=== PATIENT | male | born 1935 | race Caucasian/White ===

== ENCOUNTER 2021-01-08 17:47 | Inpatient (IN) | payer MEDICARE, OTHER ==
[~2021-01-08 17:47] MED LIST: 3IN1 COMMODE XX; ASPIRIN CHEWABL81 MG PO; ATORVASTATIN CA80 MG PO; CARVEDILOL3.125 MG PO; CEFDINIR300 MG PO; DULERA 200 MCG8.8 GM INH; DUONEB 2.5-0.5M1 AMP NEB; ELIQUIS2.5 MG PO; FEOSOL325 MG PO; FLOVENT HF120 PUFFS/ INH; HCTZ12.5 MG PO; LASIX40 MG PO; MEDROL 4MG DOSEP4 MG PO; MICON-GUARD 2% TOP; MONTELUKAST SOD10 MG PO; MUCINEX 600MG600 MG PO; OMEPRAZOLE40 MG PO; PERCOCET 5-3251 EACH PO; PREDNISONE 20MG20 MG PO; PREDNISONE5 MG PO; PULMICORT0.5 MG/2 M NEB; SELENIUM200 MC1 PO; VENTOLIN (2.5 MG/3 M INH; VITAMIN D3 COM1 EACH PO; ZITHROMAX500 MG PO; ZPAK PO; [UNRECOGNIZED DRUG - OTHER] SL
[2021-01-08 18:17] LABS: BASOPHIL 0.4 % (0-2); EOSINOPHIL 0.8 % (0-7); HCT 39.9 % (42.0-52.0); LYMPHOCYTE 15.6 % (15-48); MCH 23.6 pg (25.0-31.0); MCHC 30.1 g/dL (32.0-36.0); MCV 78.5 fL (78.0-100.0); MONOCYTE 10.2 % (0-12); MPV 11.1 fL (6.0-9.5); NEUTROPHIL 72.6 % (41-80); NRBC 0; PLT 267 K/uL (150-400); RBC 5.08 M/uL (4.70-6.00); RDW 19.7 % (11.5-14.0); WBC 9.6 K/uL (4.0-10.5)
[2021-01-08 18:23] LABS: INR 1.1 (0.9-1.2); PROTHROMBIN TIME 13.5 SECONDS (11.4-13.6); PTT 29.4 SECONDS (22.2-34.7)
[2021-01-08 18:34] LABS: LACTIC ACID 1.8 mmol/L (0.4-1.9)
[2021-01-08 18:39] LABS: CKMB 1.2 ng/mL (0.0-3.6); PRO-BNP 276 pg/mL (<450)
[2021-01-08 18:41] LABS: ALBUMIN 3.4 g/dL (3.4-5.0); BILIRUBIN - TOTAL 0.3 mg/dL (0.2-1.0); BUN/CREAT RATIO (CALC) 33.3 RATIO; CREATININE 1.05 mg/dL (0.67-1.17); GLOBULIN (CALCULATION) 3.8 g/dL; TOTAL PROTEIN 7.2 g/dL (6.4-8.2)
[2021-01-08 20:51] LABS: MAGNESIUM 2.1 mg/dL (1.8-2.4); PHOSPHORUS 3.5 mg/dL (2.6-4.7)
[2021-01-09 05:55] LABS: BASOPHIL 0.1 % (0-2); EOSINOPHIL 0 % (0-7); HCT 36.3 % (42.0-52.0); HGB 10.9 g/dl (13.2-18.0); LYMPHOCYTE 8.2 % (15-48); MCV 76.6 fL (78.0-100.0); MONOCYTE 3.7 % (0-12); MPV 11.6 fL (6.0-9.5); NEUTROPHIL 87.6 % (41-80); NRBC 0; PLT 267 K/uL (150-400); RBC 4.74 M/uL (4.70-6.00); RDW 19.3 % (11.5-14.0); WBC 8.1 K/uL (4.0-10.5)
[2021-01-09 06:24] LABS: BILIRUBIN - TOTAL 0.4 mg/dL (0.2-1.0); BUN/CREAT RATIO (CALC) 37.9 RATIO; CREATININE 0.95 mg/dL (0.67-1.17); GLOBULIN (CALCULATION) 3.6 g/dL; POTASSIUM 4.5 mmol/L (3.5-5.1); TOTAL PROTEIN 6.6 g/dL (6.4-8.2)
--- NOTE | 2021-01-09 10:03 | NUR ---
PATIENT 92% ON ROOM AIR LYING IN BED. AFTER PATIENT TRANSFERRED TO CHAIR AND SPOT CHECKED PATIENT SAT WAS 86% PLACED ON O2-2L PER NC. PRN DUONEB GIVEN INSTRUCTED BY . LOUISA BELLA ENCOURAGED AND USED
--- NOTE | 2021-01-10 13:35 | NUR ---
01/10/21 Mr. Renee lives at home. He has 24 hours caregivers. He has 02, cane, rw, and s.chair. [facility] is current and patient chose to continue with [facility]. [facility] was notified of admission and anticipated discharge for 01/11/21.
[2021-01-10] MEDS ORDERED: PREDNISONE 20MG20 MG PO (17:30)
[2021-01-10] MEDS ORDERED: LEVAQUIN750 MG PO (17:30)
[2021-01-11 05:58] LABS: BASOPHIL 0.1 % (0-2); EOSINOPHIL 0.2 % (0-7); HCT 32.9 % (42.0-52.0); HGB 10.1 g/dl (13.2-18.0); LYMPHOCYTE 14.6 % (15-48); MCH 23.3 pg (25.0-31.0); MCHC 30.7 g/dL (32.0-36.0); MCV 75.8 fL (78.0-100.0); MONOCYTE 11.4 % (0-12); MPV 11.3 fL (6.0-9.5); NEUTROPHIL 73.2 % (41-80); NRBC 0; PLT 244 K/uL (150-400); RBC 4.34 M/uL (4.70-6.00); WBC 9.6 K/uL (4.0-10.5)
[2021-01-11 06:21] LABS: CREATININE 1.03 mg/dL (0.67-1.17); POTASSIUM 3.9 mmol/L (3.5-5.1)
== END 2021-01-11 09:40 | disposition home health service (06) | DRG 191 ==
LOC: FER 17:47 → FMS 20:03
PROVIDERS: Allergy & Immunology Allergy; Emergency Medicine; Nurse Practitioner; ADMIT Internal Medicine
DX: J44.1 Chronic obstructive pulmonary disease with (acute) exacerbation (principal); J96.11 Chronic respiratory failure with hypoxia; Z66 Do not resuscitate; I10 Essential (primary) hypertension; F03.90 Unspecified dementia, unspecified severity, without behavioral disturbance, psychotic disturbance, mood disturbance, and anxiety; F17.210 Nicotine dependence, cigarettes, uncomplicated; G47.30 Sleep apnea, unspecified; Z20.822 Contact with and (suspected) exposure to COVID-19; L89.151 Pressure ulcer of sacral region, stage 1; E78.5 Hyperlipidemia, unspecified; I25.10 Atherosclerotic heart disease of native coronary artery without angina pectoris; Z85.118 Personal history of other malignant neoplasm of bronchus and lung; Z79.01 Long term (current) use of anticoagulants; Z79.899 Other long term (current) drug therapy; Z99.81 Dependence on supplemental oxygen; Z95.5 Presence of coronary angioplasty implant and graft; Z85.828 Personal history of other malignant neoplasm of skin; Z86.711 Personal history of pulmonary embolism; Z90.2 Acquired absence of lung [part of]
CPT/HCPCS: 36415; 36600; 71045; 80048; 80053; 82553; 82803; 83605; 83735; 83880; 84100; 84484; 85025; 85610; 85730; 93005; 94010; 94640; 94667; 94668; 97162; 97530-GP; J1956; J2930; J7512; U0002

== ENCOUNTER 2021-03-19 13:23 | Day surgery (SDCO) | payer MEDICARE, OTHER ==
[~2021-03-19 13:23] MED LIST changes: +LEVAQUIN750 MG PO
[2021-03-19 14:14] LABS: BASOPHIL 0.5 % (0-2); EOSINOPHIL 4.5 % (0-7); HCT 35.9 % (42.0-52.0); HGB 10.4 g/dl (13.2-18.0); LYMPHOCYTE 10.5 % (15-48); MCH 23.1 pg (25.0-31.0); MCV 79.8 fL (78.0-100.0); MONOCYTE 8.3 % (0-12); NEUTROPHIL 75.9 % (41-80); NRBC 0; PLT 225 K/uL (150-400); RDW 19.8 % (11.5-14.0); WBC 7.9 K/uL (4.0-10.5)
[2021-03-19 14:26] LABS: ALBUMIN 3.1 g/dL (3.4-5.0); BILIRUBIN - TOTAL 0.4 mg/dL (0.2-1.0); GLOBULIN (CALCULATION) 3.3 g/dL; POTASSIUM 4.4 mmol/L (3.5-5.1); TOTAL PROTEIN 6.4 g/dL (6.4-8.2)
[2021-03-19 14:31] LABS: PRO-BNP 462 pg/mL (<450)
[2021-03-19] MEDS ORDERED: ZYRTEC10 M3 PO (17:56)
[2021-03-20 05:39] LABS: BASOPHIL 0.2 % (0-2); EOSINOPHIL 0 % (0-7); HCT 32.9 % (42.0-52.0); HGB 9.8 g/dl (13.2-18.0); LYMPHOCYTE 8.3 % (15-48); MCH 23.2 pg (25.0-31.0); MCHC 29.8 g/dL (32.0-36.0); MPV 11.5 fL (6.0-9.5); NEUTROPHIL 90.2 % (41-80); NRBC 0; PLT 210 K/uL (150-400); RDW 19.6 % (11.5-14.0); RETICULOCYTE COUNT 1.7 % (1.0-2.0); WBC 6.1 K/uL (4.0-10.5)
[2021-03-20 05:41] LABS: RBC 4.22 M/uL (4.70-6.00)
[2021-03-20 06:39] LABS: IRON % SATURATION 5.7 %SAT (20-50)
[2021-03-20 07:07] LABS: ALBUMIN 2.8 g/dL (3.4-5.0); BILIRUBIN - TOTAL 0.4 mg/dL (0.2-1.0); BUN/CREAT RATIO (CALC) 29.3 RATIO; CREATININE 0.99 mg/dL (0.67-1.17); FOLIC ACID (SERUM) 11.2 ng/mL (8.6-58.9); GLOBULIN (CALCULATION) 3.7 g/dL; MAGNESIUM 1.7 mg/dL (1.8-2.4); POTASSIUM 4.3 mmol/L (3.5-5.1); TOTAL PROTEIN 6.5 g/dL (6.4-8.2)
[2021-03-21 06:23] LABS: BASOPHIL 0.1 % (0-2); EOSINOPHIL 0 % (0-7); HGB 9.6 g/dl (13.2-18.0); LYMPHOCYTE 3.6 % (15-48); MCH 23.7 pg (25.0-31.0); MCV 76.5 fL (78.0-100.0); MPV 11.9 fL (6.0-9.5); NEUTROPHIL 92.8 % (41-80); NRBC 0; PLT 217 K/uL (150-400); RBC 4.05 M/uL (4.70-6.00); RDW 19.5 % (11.5-14.0)
[2021-03-21 06:33] LABS: WBC 14.9 K/uL (4.0-10.5)
[2021-03-21 06:37] LABS: POTASSIUM 4.1 mmol/L (3.5-5.1)
[2021-03-21 06:38] LABS: MAGNESIUM 2.1 mg/dL (1.8-2.4)
--- NOTE | 2021-03-21 12:22 | NUR ---
03/21/21 Mr. Renee lives at home with 24 hour caegiving from his famaily. He is followed by [facility] and wishes to continue with the services. Affliation understood. Mr. Renee has a rw, CPAP, 02, cane and s. Chair. [facility] was informed of planned discharge for today.
[2021-03-22 05:42] LABS: BASOPHIL 0.1 % (0-2); EOSINOPHIL 0 % (0-7); HCT 31.2 % (42.0-52.0); HGB 9.7 g/dl (13.2-18.0); LYMPHOCYTE 4.8 % (15-48); MCH 23.6 pg (25.0-31.0); MCHC 31.1 g/dL (32.0-36.0); MCV 75.9 fL (78.0-100.0); MONOCYTE 6.1 % (0-12); NEUTROPHIL 88.3 % (41-80); NRBC 0; PLT 223 K/uL (150-400); RBC 4.11 M/uL (4.70-6.00); RDW 19.7 % (11.5-14.0); WBC 13.5 K/uL (4.0-10.5)
[2021-03-22 05:44] LABS: MPV 11.1 fL (6.0-9.5)
[2021-03-22 05:48] LABS: ALBUMIN 2.9 g/dL (3.4-5.0); BILIRUBIN - TOTAL 0.3 mg/dL (0.2-1.0); BUN/CREAT RATIO (CALC) 41.2 RATIO; CREATININE 0.97 mg/dL (0.67-1.17); GLOBULIN (CALCULATION) 3.1 g/dL; MAGNESIUM 2.2 mg/dL (1.8-2.4); POTASSIUM 4.5 mmol/L (3.5-5.1)
[2021-03-22] MEDS ORDERED: CARVEDILOL3.125 MG PO (13:07)
[2021-03-22] MEDS ORDERED: ELIQUIS2.5 MG PO (13:07)
== END 2021-03-22 17:15 | disposition home health service (06) ==
LOC: FER 13:23 → FMS 15:26
PROVIDERS: Emergency Medicine; ADMIT Internal Medicine
DX: J96.22 Acute and chronic respiratory failure with hypercapnia (principal); J44.1 Chronic obstructive pulmonary disease with (acute) exacerbation; I25.10 Atherosclerotic heart disease of native coronary artery without angina pectoris; I10 Essential (primary) hypertension; E78.5 Hyperlipidemia, unspecified; G47.33 Obstructive sleep apnea (adult) (pediatric); I71.9 Aortic aneurysm of unspecified site, without rupture; E87.2 Acidosis; D50.9 Iron deficiency anemia, unspecified; F03.90 Unspecified dementia, unspecified severity, without behavioral disturbance, psychotic disturbance, mood disturbance, and anxiety; Z95.5 Presence of coronary angioplasty implant and graft; Z99.81 Dependence on supplemental oxygen; Z72.0 Tobacco use; Z20.822 Contact with and (suspected) exposure to COVID-19; Z79.899 Other long term (current) drug therapy
CPT/HCPCS: 36415; 36600; 71045; 71250; 80048; 80053; 82607; 82746; 82803; 83540; 83550; 83605; 83735; 83880; 84100; 84145; 84484; 85025; 93005; 94010; 94640; 94668; G0378; J0456; J0696; J2916; J2930; J3475; J7050; U0002

== ENCOUNTER 2021-03-23 08:57 | Emergency (ER) | payer MEDICARE, OTHER ==
[~2021-03-23 08:57] MED LIST changes: +ZYRTEC10 M3 PO
== END 2021-03-23 10:38 | disposition home or self-care (01) ==
LOC: FER 08:57
DX: S51.012A Laceration without foreign body of left elbow, initial encounter (principal); J44.9 Chronic obstructive pulmonary disease, unspecified; Z86.79 Personal history of other diseases of the circulatory system; W19.XXXA Unspecified fall, initial encounter; Y92.009 Unspecified place in unspecified non-institutional (private) residence as the place of occurrence of the external cause
CPT/HCPCS: 99283

== ENCOUNTER 2021-04-24 14:13 | Day surgery (SDCO) | payer MEDICARE, OTHER ==
[~2021-04-24] VITALS: Ht 175.3 cm; Wt 91.7 kg
[2021-04-24 15:52] LABS: BASOPHIL 0.8 % (0-2); EOSINOPHIL 2.7 % (0-7); HCT 34.9 % (42.0-52.0); HGB 10.3 g/dl (13.2-18.0); LYMPHOCYTE 15.3 % (15-48); MCH 24.2 pg (25.0-31.0); MCHC 29.5 g/dL (32.0-36.0); MCV 82.1 fL (78.0-100.0); MONOCYTE 12.4 % (0-12); MPV 11.5 fL (6.0-9.5); NEUTROPHIL 68.5 % (41-80); NRBC 0; PLT 237 K/uL (150-400); RBC 4.25 M/uL (4.70-6.00); RDW 20.6 % (11.5-14.0); WBC 6.2 K/uL (4.0-10.5)
[2021-04-24 16:23] LABS: ALBUMIN 3.2 g/dL (3.4-5.0); BILIRUBIN - TOTAL 0.5 mg/dL (0.2-1.0); BUN/CREAT RATIO (CALC) 22.4 RATIO; CREATININE 0.98 mg/dL (0.67-1.17); GLOBULIN (CALCULATION) 3.1 g/dL; POTASSIUM 4.1 mmol/L (3.5-5.1); TOTAL PROTEIN 6.3 g/dL (6.4-8.2)
[2021-04-24 16:28] LABS: LACTIC ACID 0.9 mmol/L (0.4-1.9)
[2021-04-24 16:30] LABS: PRO-BNP 349 pg/mL (<450)
[2021-04-24 17:09] LABS: CORONAVIRUS 2019 SARS-COV-2 NEGATIVE (NEGATIVE); INFLUENZA A NAA NEGATIVE (NEGATIVE)
[2021-04-24 22:26] LABS: BILIRUBIN NEGATIVE (NEGATIVE); BLOOD TRACE-INTACT Ery/uL (NEGATIVE); CLARITY CLEAR (CLEAR); COLOR YELLOW (YELLOW); GLUCOSE (U) NORMAL (NORMAL); LEUKOCYTES NEGATIVE Leu/uL (NEGATIVE); NITRITE NEGATIVE (NEGATIVE); PROTEIN NEGATIVE (NEGATIVE); UROBILINOGEN 0.2 mg/dL (0.2-1.0); pH 5.5 (5.0-9.0)
[2021-04-24 22:34] LABS: BACTERIA TRACE; URINARY RBC RARE
[2021-04-25 05:58] LABS: BASOPHIL 0.2 % (0-2); EOSINOPHIL 0 % (0-7); HCT 34.9 % (42.0-52.0); HGB 10.2 g/dl (13.2-18.0); LYMPHOCYTE 8.3 % (15-48); MCH 23.8 pg (25.0-31.0); MCHC 29.2 g/dL (32.0-36.0); MCV 81.4 fL (78.0-100.0); MONOCYTE 1.5 % (0-12); MPV 11.4 fL (6.0-9.5); NEUTROPHIL 89.8 % (41-80); NRBC 0; PLT 218 K/uL (150-400); RBC 4.29 M/uL (4.70-6.00); RDW 20.5 % (11.5-14.0); WBC 5.3 K/uL (4.0-10.5)
[2021-04-25 06:21] LABS: BUN/CREAT RATIO (CALC) 30.3 RATIO; CREATININE 0.89 mg/dL (0.67-1.17); POTASSIUM 4.3 mmol/L (3.5-5.1)
--- NOTE | 2021-04-25 16:01 | NUR ---
04/25/21 Mr. Renee has 24 hour caregivers. He has a CPAP, rw, s. chair, 02, and cane. [facility] is current. Sam Renee, son / POA, wishes for [facility] to continue providing services and is knowledgeable of affliation. A referral was made to [facility] via [facility].
--- NOTE | 2021-04-26 04:22 | NUR ---
@ 1999 lATE ENTRY: TELEMETRY SHOWING NSR VR 73. RI: 0.16, QRS: .08 04/26/21 @ 0400 LATE ENTRY: TELEMETRY SHOWING NSR VR 74. RI: 0.20, QRS: .08
[2021-04-26] MEDS ORDERED: PREDNISONE 20MG20 MG PO (09:52)
--- NOTE | 2021-04-30 09:25 | NUR ---
PATIENT WAS DISCHARGED BEFORE BEING SEEN BY WOUND CARE.
== END 2021-04-26 10:45 | disposition home health service (06) ==
LOC: FER 14:13 → FMS 17:31
PROVIDERS: Nurse Practitioner; Nurse Practitioner Family; ADMIT Internal Medicine
DX: J44.1 Chronic obstructive pulmonary disease with (acute) exacerbation (principal); J96.22 Acute and chronic respiratory failure with hypercapnia; J96.21 Acute and chronic respiratory failure with hypoxia; F03.90 Unspecified dementia, unspecified severity, without behavioral disturbance, psychotic disturbance, mood disturbance, and anxiety; I44.0 Atrioventricular block, first degree; Z20.822 Contact with and (suspected) exposure to COVID-19; Z90.2 Acquired absence of lung [part of]; G47.33 Obstructive sleep apnea (adult) (pediatric); I10 Essential (primary) hypertension; I25.10 Atherosclerotic heart disease of native coronary artery without angina pectoris; Z95.5 Presence of coronary angioplasty implant and graft; M25.511 Pain in right shoulder; G89.29 Other chronic pain; Z87.891 Personal history of nicotine dependence; Z79.01 Long term (current) use of anticoagulants; G93.41 Metabolic encephalopathy; Z86.711 Personal history of pulmonary embolism; L89.329 Pressure ulcer of left buttock, unspecified stage; Z66 Do not resuscitate; Z85.118 Personal history of other malignant neoplasm of bronchus and lung; Z51.5 Encounter for palliative care
CPT/HCPCS: 36415; 36600; 71046; 80048; 80053; 81001; 82803; 83605; 83880; 84484; 85025; 87040; 93005; 94010; 94640; 94664; 94667; 94668; 94762; G0378; J2930; J7030; U0002

== ENCOUNTER 2021-05-07 17:17 | Day surgery (SDCO) | payer MEDICARE, OTHER ==
[~2021-05-07] VITALS: Ht 175.3 cm; Wt 89.0 kg
[2021-05-07 17:58] LABS: BASOPHIL 0.2 % (0-2); EOSINOPHIL 1.2 % (0-7); HCT 35.9 % (42.0-52.0); HGB 10.6 g/dl (13.2-18.0); LYMPHOCYTE 8.9 % (15-48); MCH 23.8 pg (25.0-31.0); MCHC 29.5 g/dL (32.0-36.0); MCV 80.5 fL (78.0-100.0); MONOCYTE 9.9 % (0-12); MPV 11.8 fL (6.0-9.5); NEUTROPHIL 79.3 % (41-80); NRBC 0; PLT 213 K/uL (150-400); RBC 4.46 M/uL (4.70-6.00); WBC 10.7 K/uL (4.0-10.5)
[2021-05-07 18:01] LABS: INR 1.17 (0.9-1.2); PROTHROMBIN TIME 14.3 SECONDS (11.8-13.4); PTT 33.9 SECONDS (24.4-34.7)
[2021-05-07 18:10] LABS: ALBUMIN 2.9 g/dL (3.4-5.0); BILIRUBIN - TOTAL 0.5 mg/dL (0.2-1.0); BUN/CREAT RATIO (CALC) 27.4 RATIO; C-REACTIVE PROTEIN 1.1 mg/dL (<=0.90); CREATININE 0.84 mg/dL (0.67-1.17); GLOBULIN (CALCULATION) 3.6 g/dL; MAGNESIUM 1.7 mg/dL (1.8-2.4); POTASSIUM 4.1 mmol/L (3.5-5.1); TOTAL PROTEIN 6.5 g/dL (6.4-8.2)
[2021-05-07 21:24] LABS: BILIRUBIN NEGATIVE (NEGATIVE); BLOOD NEGATIVE Ery/uL (NEGATIVE); CLARITY CLEAR (CLEAR); COLOR YELLOW (YELLOW); GLUCOSE (U) TRACE mg/dL (NORMAL); LEUKOCYTES NEGATIVE Leu/uL (NEGATIVE); NITRITE NEGATIVE (NEGATIVE); PROTEIN NEGATIVE (NEGATIVE); UROBILINOGEN 0.2 mg/dL (0.2-1.0)
[2021-05-08 05:54] LABS: BASOPHIL 0.3 % (0-2); EOSINOPHIL 0 % (0-7); HCT 34.4 % (42.0-52.0); HGB 10.2 g/dl (13.2-18.0); LYMPHOCYTE 7.4 % (15-48); MCH 23.8 pg (25.0-31.0); MCHC 29.7 g/dL (32.0-36.0); MCV 80.2 fL (78.0-100.0); MONOCYTE 4.9 % (0-12); MPV 11.6 fL (6.0-9.5); NEUTROPHIL 86.8 % (41-80); NRBC 0; PLT 204 K/uL (150-400); RBC 4.29 M/uL (4.70-6.00); RDW 21.1 % (11.5-14.0); WBC 10.6 K/uL (4.0-10.5)
[2021-05-08 06:19] LABS: ALBUMIN 2.7 g/dL (3.4-5.0); BILIRUBIN - TOTAL 0.5 mg/dL (0.2-1.0); BUN/CREAT RATIO (CALC) 27.9 RATIO; CREATININE 0.86 mg/dL (0.67-1.17); GLOBULIN (CALCULATION) 3.6 g/dL; POTASSIUM 4.5 mmol/L (3.5-5.1); TOTAL PROTEIN 6.3 g/dL (6.4-8.2)
--- NOTE | 2021-05-08 17:41 | NUR ---
05/08/21 Mr. Renee lives at home with 24 hour caregivers. He has a rw, 02, 3in1. [facility] is current and has been notified via [employer] of admission. VANESSA Hi, has requested donis. placement. He was educated to OBS status and barriers to placement. Choices are [facility], [place], [facility], or SNF in [facility].
--- NOTE | 2021-05-09 13:26 | NUR ---
05/09/21 Referrals have been made to: Prachi Riley, [facility], [facility] and Naomi Flores, [facility] and [facility].
--- NOTE | 2021-05-09 14:03 | NUR ---
SPOKE TO MARK RAO FOR ROB AT [facility] SHE PREFERED I EMAIL HER TO [email or web address] SENT INFORMATION ASKED HER TO CALL ME IF SHE DID NOT GET MY EMAIL WITHEN 10 MINUTES. PENDING CALLBACK EMILY RAMOS [phone] CALLED AND SPOKE TO DANIEL MILLER AT [facility] SHE PREFERED I EMAIL HER THE REFFERAL TO [email or web address] Federal BankSAINT JOSEPH'S HOSPITALCrumbs Bake ShopWRIGHT MEMORIAL HOSPITALGlasshouse International SENT THAT IN GAVE MY PHONE NUMBER WELL AND ASKED FOR A RETURN CALL ONCE SHE HAD HER DETERMINATION I CALLED [phone]
--- NOTE | 2021-05-09 15:24 | NUR ---
05/09/21 Naomi Martell has accepted patient for admission for 05/10/21. Sam Renee, son / POA, accepted the placement. Please notify Sam when patient is being discharged. Patient will be transported by EMS per Dr. Sewell. Please call report to: [phone] and fax DS to [phone]. Report given to MS MECHELLE Booth.
== END 2021-05-10 15:11 ==
LOC: FER 17:17 → FMS 21:54 → FER 22:00 → FMS 22:00 → FER 22:30 → FMS 05-10 06:41
PROVIDERS: Emergency Medicine; Nurse Practitioner; Nurse Practitioner Family; ADMIT Internal Medicine
DX: J44.1 Chronic obstructive pulmonary disease with (acute) exacerbation (principal); R53.1 Weakness; J96.12 Chronic respiratory failure with hypercapnia; I10 Essential (primary) hypertension; R41.82 Altered mental status, unspecified; R73.9 Hyperglycemia, unspecified; G47.33 Obstructive sleep apnea (adult) (pediatric); I25.10 Atherosclerotic heart disease of native coronary artery without angina pectoris; I48.0 Paroxysmal atrial fibrillation; E78.5 Hyperlipidemia, unspecified; F03.90 Unspecified dementia, unspecified severity, without behavioral disturbance, psychotic disturbance, mood disturbance, and anxiety; G89.29 Other chronic pain; M25.511 Pain in right shoulder; Z86.711 Personal history of pulmonary embolism; Z99.81 Dependence on supplemental oxygen; Z85.118 Personal history of other malignant neoplasm of bronchus and lung; Z95.5 Presence of coronary angioplasty implant and graft; Z66 Do not resuscitate; Z87.891 Personal history of nicotine dependence; Z79.01 Long term (current) use of anticoagulants; Z79.899 Other long term (current) drug therapy; Z20.822 Contact with and (suspected) exposure to COVID-19
CPT/HCPCS: 36415; 36600; 71250; 80053; 81003; 82803; 83605; 83735; 83880; 84145; 84484; 85025; 85610; 85730; 86140; 87040; 93005; 94010; 94640; 94760; 97110; 97161; 97166; 97535; G0378; J0456; J1720; J2930; J3475; J7030; J7050; U0002